=== PATIENT | male | born 2000 | race Caucasian/White ===

== ENCOUNTER 2024-05-09 19:06 | Emergency (ER) | payer BC, SELFPAY ==
[2024-05-09 19:10] VITALS: BP 153/99; PULSE 50; RESP 18; TEMP 36.7; O2SAT 95
--- NOTE | 2024-05-09 19:19 | ED.GENADULT ---
HPI - General Adult General Chief complaint: Nausea/Vomiting/Diarrhea Stated complaint: N/V/D for several days Time Seen by Provider: 05/09/24 19:18 History of Present Illness HPI narrative: This is a 24-year-old male history of daily marijuana use presenting for nausea vomiting. Been having persistent nausea vomiting for last 3-4 days. He has been out of tolerate water. He says that he has tried Zofran, Benadryl, hot showers with no relief. He says this has happened once before many improved with IV fluids. He denies fevers chills chest pain difficulty breathing abdominal pain or urinary symptoms. Related Data Allergies Allergy/AdvReac Type Severity Reaction Status Date / Time No Known Allergies Allergy Verified 05/09/24 19:07 Exam Narrative: APPEARANCE: No apparent distress. Head: atraumatic. EYES: EOMI, NOSE: Atraumatic NECK: Trachea midline RESPIRATORY: No increased rate of breathing CTAB CARDIOVASCULAR: RRR, ABDOMINAL: Non-distended , soft nontender no guarding or rebound MUSCULOSKELETAl: No obvious deformities NEURO: Alert. Moving 4/4 extremities SKIN:: Warm, dry. Normal color PSYCHIATRIC: Normal affect Course Vital Signs Vital signs: Vital Signs Temperature 98.0 F 05/09/24 19:10 Pulse Rate 50 L 05/09/24 19:10 Respiratory Rate 18 05/09/24 19:10 Blood Pressure 153/99 H 05/09/24 19:10 Pulse Oximetry 95 05/09/24 19:10 Oxygen Delivery Room Air 05/09/24 19:10 Temperature 98.0 F 05/09/24 19:10 Pulse Rate 96 05/09/24 20:44 Respiratory Rate 16 05/09/24 20:44 Blood Pressure 134/76 05/09/24 20:44 Pulse Oximetry 94 05/09/24 20:44 Oxygen Delivery Room Air 05/09/24 19:10 Medical Decision Making [facility] Narrative Medical decision making narrative: -Course: 24-year-old male presenting with nausea vomiting. Physical exam is unremarkable. Patient be treated for cannabinoid hyperemesis. Re-evaluation is resting comfortably and able tolerate p.o.. He will be discharged with primary care follow-up. Given instructions to cease marijuana use to see if that improves his symptoms. -DDX includes but is not limited to: Cannabinoid hyperemesis, gastroenteritis, gastritis -Co-morbidities complicating care: daily marijuana use -Social determinants of health: works in a kitchen, uses alcohol and nicotine occasionally, daily marijuana use Vital Signs Vital Signs: Vital Signs Temperature 98.0 F 05/09/24 19:10 Pulse Rate 50 L 05/09/24 19:10 Respiratory Rate 18 05/09/24 19:10 Blood Pressure 153/99 H 05/09/24 19:10 Pulse Oximetry 95 05/09/24 19:10 Oxygen Delivery Room Air 05/09/24 19:10 Temperature 98.0 F 05/09/24 19:10 Pulse Rate 96 05/09/24 20:44 Respiratory Rate 16 05/09/24 20:44 Blood Pressure 134/76 05/09/24 20:44 Pulse Oximetry 94 05/09/24 20:44 Oxygen Delivery Room Air 05/09/24 19:10 Lab Data 05/09/24 19:41 05/09/24 19:41 Labs: Lab Results 05/09/24 Range/Units 19:41 WBC 11.8 H (4.5-10.0) K/mm3 RBC 5.54 (4.6-6.20) M/mm3 Hgb 17.3 (14.0-18.0) g/dL Hct 47.1 (42.0-52.0) % MCV 85.0 (80-100) fl MCH 31.2 (26-34) pg MCHC 36.7 H (32-36) g/dl RDW 11.8 (11.5-14.5) % Plt Count 315 (150-375) k/mm3 MPV 10.4 (7.4-10.4) fl Immature Gran % (Auto) 0.3 (0-0.5) % Neut % (Auto) 80.7 H (45.5-73.1) % Lymph % (Auto) 13.1 L (18.3-44.2) % [place] % (Auto) 5.6 (2.6-8.5) % Eos % (Auto) 0.0 (0-4.4) % Baso % (Auto) 0.3 (0.2-1.2) % Lymph # (Auto) 1.55 (0.9-3.2) K/mm3 [place] # (Auto) 0.7 H (0.1-0.6) K/mm3 Eos # (Auto) 0.0 (0-0.3) K/mm3 Baso # (Auto) 0.0 (0.0-0.1) K/mm3 Abs Immat Gran (auto) 0.04 H (0.00-0.031) K/mm3 Absolute Neuts (auto) 9.5 H (1.3-6.7) K/mm3 Absolute Nucleated RBC 0.000 (0.0-0.012) K/mm3 Nucleated RBC % 0.0 (0.0-0.2) % Sodium 134 L (137-145) mmol/L Potassium 3.2 L (3.4-5.0) mmol/L Chloride 89 L (98-107) mmol/L Carbon Dioxide 22 (22-30) mmol/L Anion Gap 23 H (4-12) mmol/L BUN 28 H (9-20) mg/dL Creatinine 1.27 (0.7-1.3) mg/dL Estim Creat Clear Calc 72 ml/min Estimated GFR > 60 (59 - ) Glucose 107 (65-110) mg/dL Calcium 10.1 (8.4-10.2) mg/dL Total Bilirubin 2.4 H (0.2-1.3) mg/dL AST 36 (17-59) U/L ALT 14 (6-50) U/L Alkaline Phosphatase 114 (38-126) U/L Total Protein 9.0 H (6.3-8.2) g/dL Albumin 5.6 H (3.5-5.1) g/dL Lipase 63 (23-300) U/L Discharge Plan Discharge Clinical Impression: Nausea & vomiting Patient Disposition: Home, Self-Care Condition: Stable Instructions: Antibiotic Form, Acute Nausea and Vomiting (ED) Additional Instructions: You were seen in the emergency department for nausea and vomiting. Please use Zofran as needed. Please eat a bland diet until your symptoms improve. Please stop using marijuana to see if that improves her symptoms. He can follow up with primary care physician management. Return if develop fevers severe abdominal pain or intractable nausea vomiting Patient Language: Mexican Prescriptions: New ondansetron 4 mg tablet,disintegrating 4 mg PO Q8H PRN (Reason: nausea and vomiting) Qty: 30 0RF Follow-up/Referrals: PHYSICIAN,MACHINE [employer] REPA[employer] TECHNICIAN [Primary Care Provider] -
--- NOTE | 2024-05-09 19:24 | ECG_ITS ---
Test Date: 2024-05-09 19:58:27 Measurements Intervals [place] Rate: 70 P: 5 VA: 143 QRS: 70 QRSD: 96 T: 47 QT: 361 QTc: 391 Interpretive Statements SINUS RHYTHM WITH SINUS ARRHYTHMIA NORMAL ECG No previous ECG available for comparison Electronically Signed On 05-10-2024 06:50:16 CDT by Howard Zhou M.D.
[2024-05-09 19:46] LABS: Basophils Percent Auto 0.3 % (0.2-1.2); Hematocrit 47.1 % (42.0-52.0); Hemoglobin 17.3 g/dL (14.0-18.0); Immature Granulocyte Absolute 0.04 K/mm3 (0.00-0.031); Immature Granulocyte Percent A 0.3 % (0-0.5); Lymphocytes Absolute Auto 1.55 K/mm3 (0.9-3.2); Lymphocytes Percent Auto 13.1 % (18.3-44.2); Mean Corpuscular HGB Conc 36.7 g/dl (32-36); Mean Corpuscular Hemoglobin 31.2 pg (26-34); Mean Platelet Volume 10.4 fl (7.4-10.4); Monocytes Absolute Auto 0.7 K/mm3 (0.1-0.6); Monocytes Percent Auto 5.6 % (2.6-8.5); Neutrophils Absolute Auto 9.5 K/mm3 (1.3-6.7); Neutrophils Percent Auto 80.7 % (45.5-73.1); Platelet Count Result 315 k/mm3 (150-375); Red Blood Count 5.54 M/mm3 (4.6-6.20); Red Cell Distribution Width 11.8 % (11.5-14.5); White Blood Count 11.8 K/mm3 (4.5-10.0)
[2024-05-09 19:55] LABS: Alanine Aminotransferase 14 U/L (6-50); Albumin Level 5.6 g/dL (3.5-5.1); Alkaline Phosphatase 114 U/L (38-126); Anion Gap 23 mmol/L (4-12); Aspartate Amino Transferase 36 U/L (17-59); Bilirubin,Total 2.4 mg/dL (0.2-1.3); Blood Urea Nitrogen 28 mg/dL (9-20); Calcium 10.1 mg/dL (8.4-10.2); Carbon Dioxide 22 mmol/L (22-30); Chloride 89 mmol/L (98-107); Estimated CRCL calculation 72 ml/min; Estimated Glomerular Filt Rate > 60; Glucose 107 mg/dL (65-110); Lipase 63 U/L (23-300); Potassium 3.2 mmol/L (3.4-5.0); Sodium 134 mmol/L (137-145)
[2024-05-09] MEDS: POTASSIUM CHLORIDE 20 MEQ PACKET (FOR LIQUID) 40 MEQ PO (20:09)
[2024-05-09] MEDS: FAMOTIDINE 20 MG/2 ML VIAL IV PUSH (20:09)
[2024-05-09] MEDS: HALOPERIDOL LACTATE 5 MG/ML VIAL IM (20:09)
[2024-05-09] MEDS: ONDANSETRON INJ 4 MG/2 ML VIAL IV PUSH (20:10)
[2024-05-09] MEDS: SODIUM CHLORIDE 0.9% IV 3,000 ML 999 ML IV CONT (20:10)
[2024-05-09 20:44] VITALS: BP 134/76; PULSE 96; RESP 16; O2SAT 94
--- NOTE | 2024-05-09 20:44 | PC.NURSE ---
pt refused to provide urine sample at this time.
== END 2024-05-09 23:26 | disposition home or self-care (01) ==
LOC: ANHED 20:10
PROVIDERS: Emergency Provider Emergency Medicine
DX: R11.2 Nausea with vomiting, unspecified (principal); F12.90 Cannabis use, unspecified, uncomplicated
CPT/HCPCS: 36415; 80053; 83690; 85025; 93005; 96361; 96372; 96374; 96375; 99284; A9270; J1630; J2405; J7030